=== PATIENT | male | born 1960 | race Caucasian/White ===

== ENCOUNTER 2018-08-17 14:47 | Emergency (ER) | payer SELFPAY ==
[~2018-08-17 14:47] MED LIST: ISOVUE-370 76%-LOCM 1 ML ONE
[2018-08-17] MEDS ORDERED: Midazolam HCl 2 mg/2 ml Vial ONE (15:11)
[2018-08-17 15:13] LABS: #Eosinphils 0.6 thou/uL (0.0-0.7); #Lymphocytes 1.9 thou/uL (1.20-3.40); #Monocytes 0.6 thou/uL (0.11-0.59); #Neutrophils 4.6 thou/uL (1.40-6.50); %Basophils 0.5 % (0.0-1.0); %Eosinophils 8.3 % (0.0-10.0); %Lymphocytes 24.4 % (21.0-51.0); %Monocytes 8.2 % (0.0-10.0); %Neutrophils 58.6 % (42.0-75.0); Hemoglobin 13.8 g/dL (14.0-18.0); Mean Corpuscular HGB CONC 32.4 g/dL (32.0-36.0); Mean Corpuscular Hemoglobin 29.8 pg (27.0-31.0); Mean Corpuscular Volume 91.9 fL (78.0-98.0); Mean Platelet Volume 9.9 fL (7.4-10.4); Platelet Count 120 thou/uL (130-400); RBC Distribution Width 12.3 % (11.5-14.5); Red Blood Cell (RBC) Count 4.62 mill/uL (4.70-6.10); White Blood Cell (WBC) Count 7.8 thou/uL (4.8-10.8)
[2018-08-17] MEDS ORDERED: fentaNYL Citrate/PF 2,000 MCG in Sodium Chloride 0.9% 60 ML IV SCH (15:16)
--- NOTE | 2018-08-17 15:27 | RAD ---
RADIOGRAPH CHEST 1 VIEW: DATE: 08/17/2018 TIME: 3:08 PM HISTORY: 58-year-old male in respiratory distress. Status post intubation. COMPARISON: none FINDINGS: Supine positioning makes this insensitive for pneumothorax detection. ETT distal tip overlies mid tho racic trachea. NGT visualized, distal portion outside of field of view. Left lung base outside of field of view. No consolidation or pulmonary edema in the rest of lung ndiaye. Defibrillation paddle overlies right lung. IMPRESSION: 1) status post intubation with endotracheal tube and esophagogastric tube. 2) ongoing cardioversion.
[2018-08-17 15:28] LABS: ALT (SGPT) 14 U/L (8-55); AST (SGOT) 18 U/L (5-34); Albumin 3.8 g/dL (3.5-5.0); Alkaline Phosphatase 58 U/L (40-150); Anion Gap 16 mmol/L (10-20); BUN (Urea Nitrogen) 24 mg/dL (8.4-25.7); Bilirubin, Total 0.5 mg/dL (0.2-1.2); Calc. Creatinine Clearance 0 mL/min (70-130); Calcium 8.9 mg/dL (7.8-10.44); Carbon Dioxide 21 mmol/L (22-29); Chloride 107 mmol/L (98-107); Estimated GFR-MDRD 53; Globulin 2.3 g/dL (2.4-3.5); Glucose 94 mg/dL (70-105); Potassium 4.2 mmol/L (3.5-5.1); Protein, Total 6.1 g/dL (6.0-8.3); Sodium 140 mmol/L (136-145)
[2018-08-17] MEDS ORDERED: Esmolol 2,500 MG/250 ML 250 ML ONE (15:37)
[2018-08-17 15:50] LABS: Actual Bicarbonate (HCO3a) 23.1 mEq/L (22-28); Base Excess (BEa) -2.4 mEq/L (-2.0 to +3.0); CO2 Tension 42.7 mmHg (35.0-45.0); O2 Tension (PaO2) 121.1 mmHg (> 80.0); pH, Arterial 7.35 (7.35-7.45)
[2018-08-17 15:51] LABS: Analyzer IN Cardio ER; Calcium, Ionized 1.12 mmol/L (1.12-1.30); Carboxyhemoglobin (COHb) 0.3 gm% (0.0-3.0); Hemoglobin (Hb) 13.2 g/dL (14.0-18.0); Potassium - ABG Lab 3.66 mmol/L (3.70-5.30)
[2018-08-17 15:52] LABS: ALV-art Gradient 110.725 (0-20); Puncture Site RRA
--- NOTE | 2018-08-17 15:56 | CT ---
CT BRAIN NONCONTRAST: DATE: 08/17/2018 TIME: 3:27 PM HISTORY: 58-year-old male with altered mental status. FINDINGS: There is no evidence of acute intra-axial or extra-axial hemorrhage. There is no midline shift or any other mass effect. There is no extra-axial fluid collection. There is no evidence of obstructive hydrocephalus. Calvarium is intact. There is at least partial loss of the moreno matter-white matter di stinction diffusely throughout the bilateral cerebral hemispheres. There is fluid filling the nasopharyngeal airway. IMPRESSION: 1. Dense left MCA sign suspicious for thrombus /thromboembolism in the M1 segment of the left middle cerebral artery. 2. No acute intracranial hemorrhage or mass effect. 3. Slight loss of moreno-white junction, questionable for diffuse cytotoxic edema due to diffuse bilate ral acute cerebral hemispheric global ischemia/infarction.
--- NOTE | 2018-08-17 16:14 | CT ---
CT ANGIOGRAM THORAX WITH CONTRAST CT ANGIOGRAM ABDOMEN WITH CONTRAST: DATE: 08/17/2018 HISTORY: 58-year-old male found unresponsive and hypotensive. Dr. Cedeno verbally gave this report to Dr. Giang's medical office technology instructor Mirta Riya by telephone at 4:01 P M on 08/17/2018 TECHNIQUE: IV injection of iodinated contrast. Arterial bolus chasing technique. Scan acquisition from top of aortic arch to iliac crests. 3-D MIP reconstructions. FINDINGS: There is a large alveolar infiltrate involving almost the entire right lower lobe consistent with asp iration. The ascending aorta is aneurysmally dilated in a fusiform manner measuring 7.2 cm in diameter. Intimal flap begins at aortic root, and propagates through aortic arch, extending into the bilateral common carotid arteries and brachiocephalic artery, and left subclavian artery. 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 The dissecting intimal flap extends throughout the entire abdominal aorta, extends deep into the supe rior mesenteric artery. 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 The intimal flap and dissection propagates into the right common iliac artery a nd proximal right external iliac artery. There is a smoothly well-circumscribed, nonlobulated 7 x 6 x 8 cm mass distorting the pancreatic tail . It has density of 50 Hounsfield units. No splenomegaly. No hydronephrosis. No large renal infarction. No retroperitoneal hematoma. There is fluid throughout the mediastinum which probably rep resents hemorrhage/rupture. There is irregularity of the rosales of the ascending aortic aneurysm proximally, and the mediastinal fluid probably represents hematoma. There is a pericardial effusion, small, which is probably hemopericardium.. IMPRESSION: 1) Yannick type A, DeBakey type I aortic dissection. 2) ascending aortic aneurysm (dissecting aortic aneurysm). 3) probable rupture/leakage of ascending aortic dissecting aneurysm: Mediastinal hematoma and hemoper icardium. 4) right lower lobe aspiration pneumonia. 5) acute thrombosis occlusion of celiac artery. 6) 8 cm mass abutting the pancreatic tail. Exact etiology is uncertain, but this could represent a gi ant aneurysm, perhaps arising from splenic artery, although exact artery of origin is uncertain. 7) the dissection propagates into the great vessels, and there is associated acute thrombosis and occ lusion of the right common carotid artery.
[2018-08-17 16:23] LABS: Bacteria/HPF 1+ HPF (None Seen); Bilirubin Negative (Negative); Blood, Urine 1+ (Negative); Clarity Turbid (Clear); Glucose, Urine (Dipstick) 50 mg/dL (Negative); Leukocyte Negative Leu/uL (Negative); Nitrite Negative (Negative); Protein, Urine (Dipstick) 300 mg/dL (Neg-Trace); Transitional Epithelial 0-3 HPF (None Seen); Urobilinogen Normal mg/dL (Less than 2)
[2018-08-17 16:29] LABS: Amphetamine Not Detected (NotDetected); Barbiturates Screen Not Detected (NotDetected); Benzodiazepine Screen Not Detected (NotDetected); Cocaine Metabolite Screen Not Detected (NotDetected); Medtox Control Line Valid? VALID (VALID); Medtox Reader # READER 4; Methadone Not Detected (NotDetected); Methamphetamine Not Detected (NotDetected); Opiate Screen Not Detected (NotDetected); Oxycodone Screen Not Detected (NotDetected); Phencyclidine (PCP) Not Detected (NotDetected); THC/Cannabinoid Screen Not Detected (NotDetected); Tricyclic Screen Not Detected (NotDetected)
== END 2018-08-17 17:32 | disposition short-term general hospital (02) ==
LOC: ERS 14:47 → EDBD 14:47 → ERS 17:32
DX: J96.00 Acute respiratory failure, unspecified whether with hypoxia or hypercapnia (principal); I71.01 Dissection of thoracic aorta
CPT/HCPCS: 31500; 36415; 36430; 36556; 51702; 70450; 71045; 71275; 80053; 80306; 81003; 81015; 82805; 84484; 85025; 86850; 86900; 86901; 87086; 93005; 94002; 96361; 96365; 96366; 96368; 96374; 96375; 99292; J2250; J3010; J3490; P9016; Q9966